=== PATIENT | male | born 1960 | race Caucasian/White ===

== ENCOUNTER 2020-01-28 16:31 | Inpatient (IN) | payer OTHER ==
[~2020-01-28] VITALS: Ht 172.7 cm; Wt 82.7 kg
[2020-01-28 17:06] LABS: BASOPHILS % (AUTO) 0.4 % (0.0-5.0); EOSINOPHILS % (AUTO) 2.1 % (0.0-8.0); HEMATOCRIT 22.6 % (42-54); MEAN CORPUSCULAR HEMOGLOBIN 25.4 pg (27.0-33.0); MEAN CORPUSCULAR HGB CONC 32.7 g/dL (32.0-36.0); MEAN CORPUSCULAR VOLUME 77.7 fL (79-99); MONOCYTES % (AUTO) 5.7 % (3.0-13.0); NEUTROPHILS % (AUTO) 53.5 % (40.0-77.0); PLATELET COUNT (AUTO) 56 K/uL (130-400); RED BLOOD CELL COUNT(AUTO) 2.91 MIL/uL (4.50-6.20); RED CELL DISTRIBUTION WIDTH 20.3 % (11.0-15.5); WHITE BLOOD COUNT (AUTO) 7.2 K/uL (4.8-10.8)
[2020-01-28 17:23] LABS: CREATININE 0.9 mg/dL (0.5-1.5); PLATELET MORPHOLOGY COMMENT MARKED DECREASE; POTASSIUM 3.7 mmol/L (3.5-5.1)
[2020-01-28 17:26] LABS: INR 1.46 (0.85-1.15); PARTIAL THROMBOPLASTIN TIME 35.2 SEC (26.3-35.5); PROTHROMBIN TIME 15.5 SEC (9.6-11.6)
[2020-01-28 17:28] LABS: ALBUMIN 1.7 g/dL (3.5-5.0); TOTAL PROTEIN, SERUM 7.4 g/dL (6.0-8.3)
[2020-01-28 17:34] LABS: B-TYPE NATRIURETIC PEPTIDE 42 pg/mL (0-100)
[2020-01-28] MEDS ORDERED: PHYTONADIONE 10 MG/1 ML AMP ONE (17:42)
[2020-01-28] MEDS ORDERED: THIAMINE HCL 100 MG/ML 2ML VIAL ONE ×2 (17:44→19:28)
[2020-01-28] MEDS ORDERED: SODIUM CHLORIDE 0.9% 100 ML IV ONE (17:45)
[2020-01-28] MEDS ORDERED: SODIUM CHLORIDE 0.9% 50 ML IV ONE (17:45)
[2020-01-28] MEDS ORDERED: LACTULOSE 20 GM/30 ML UDCUP PO PRN (18:30)
[2020-01-28] MEDS ORDERED: HYDRALAZINE HCL 20 MG/ML VIAL IV PRN (18:30)
[2020-01-28] MEDS: THIAMINE HCL 100 MG, FOLIC ACID 1 MG, M.V.I. IV [ADULT] 10 ML in SODIUM CHLORIDE 0.9% 1... IV SCH (18:30)
[2020-01-28] MEDS ORDERED: PHARMACY COMMUNICATION MISC PRN (18:30)
[2020-01-28] MEDS ORDERED: ONDANSETRON HCL 4 MG/2 ML VIAL IV PRN (18:30)
[2020-01-28] MEDS ORDERED: LORAZEPAM 2 MG/ML 1 ML VIAL IVP PRN ×2 (18:30)
[2020-01-28] MEDS ORDERED: CHLORDIAZEPOXIDE HCL 25 MG CAP PO PRN ×2 (18:30)
[2020-01-28] MEDS ORDERED: M.V.I. IV [ADULT] 10 ML VIAL IV ONE (19:29)
[2020-01-28] MEDS ORDERED: SODIUM CHLORIDE 0.9% 1000ML 1,000 ML IV ONE (19:37)
[2020-01-28 19:58] LABS: % IRON SATURATION 6.4 % (30-44)
[2020-01-28 19:59] LABS: HEMOGLOBIN A1C 4.5 % (4.0-6.0)
[2020-01-28 20:00] LABS: CHOLESTEROL 163 mg/dL (<200); HDL CHOLESTEROL 93 mg/dL (29-71); LDL DIRECT 94 mg/dL (0-99); TRIGLYCERIDES 113 mg/dL (30-200)
[2020-01-28 20:24] LABS: APPEARANCE,URINE Clear (CLEAR); BILIRUBIN,URINE Negative (NEGATIVE); COLOR,URINE Yellow (YELLOW); GLUCOSE, URINE (UA) Negative (NEGATIVE); KETONES,URINE Negative (NEGATIVE); LEUKOCYTE ESTERASE ,URINE Negative (NEGATIVE); NITRATE,URINE Negative (NEGATIVE); OCCULT BLOOD,URINE Trace (NEGATIVE); PH,URINE 6.5 (5.0-8.0); PROTEIN,URINE POS 2+ mg/dL (NEGATIVE)
[2020-01-28 20:31] LABS: AMPHET/METH SCREEN,URINE NEGATIVE (NEGATIVE); BARBITURATE SCREEN, URINE NEGATIVE (NEGATIVE); BENZODIAZEPINES SCREEN,URINE NEGATIVE (NEGATIVE); CANNABINOID SCREEN,URINE NEGATIVE (NEGATIVE); COCAINE SCREEN,URINE NEGATIVE (NEGATIVE); OPIATE SCREEN,URINE NEGATIVE (NEGATIVE); PHENCYCLIDINE SCREEN,URINE NEGATIVE (NEGATIVE)
[2020-01-28 20:44] LABS: BACTERIA,URINE Few /HPF (None Seen); RENAL EPITHELIAL CELLS,URINE Few /HPF (None Seen); SQUAMOUS EPITHELIAL CELL,UR Rare /HPF (0-2); TRANSITIONAL EPI CELLS,URINE Few /HPF (None Seen); WBC,URINE 0-1 /HPF (0-1)
[2020-01-28 21:45] VITALS: BP 124/69
--- NOTE | 2020-01-28 22:00 | NUR ---
Admission Assessment Received pt from Ed per stretcher with Banana bag t 100cc/hr & Protonix Drip at 8mg/hr infusing well, pt noted sleepy but able to respond appropriately on questions being asked. Pt stated he came in because he felt weak, pt made aware possibly because of his low blood count. Pt denies having bloody stool when made aware being positive with Occult test. Per pt claimed he does not take any medications, agreed to have a flu & pneumonia vaccination as he has not received such vaccination at all. Pt reminded to remain NPO for now until further orders. Pt mouth noted some blood, per pt claimed that his gums bleeds occasionally, instructed pt to gargle to be able to monitor better. Pt also made aware that he will have a GI consult in AM. Pt currently denies discomfort.
[2020-01-28 23:57] VITALS: BP 129/74
[2020-01-29] MEDS: PANTOPRAZOLE SODIUM 80 MG in SODIUM CHLORIDE 0.9% 100 ML IV SCH ×2 (02:07→23:57)
[2020-01-29 03:50] VITALS: BP 111/70
[2020-01-29 06:13] LABS: BASOPHILS % (AUTO) 0.4 % (0.0-5.0); EOSINOPHILS % (AUTO) 1.7 % (0.0-8.0); MEAN CORPUSCULAR HEMOGLOBIN 26.4 pg (27.0-33.0); MEAN CORPUSCULAR HGB CONC 33.2 g/dL (32.0-36.0); MEAN CORPUSCULAR VOLUME 79.6 fL (79-99); MONOCYTES % (AUTO) 7.6 % (3.0-13.0); NEUTROPHILS % (AUTO) 58.9 % (40.0-77.0); PLATELET COUNT (AUTO) 49 K/uL (130-400); RED BLOOD CELL COUNT(AUTO) 2.35 MIL/uL (4.50-6.20); RED CELL DISTRIBUTION WIDTH 21.1 % (11.0-15.5); WHITE BLOOD COUNT (AUTO) 5.3 K/uL (4.8-10.8)
[2020-01-29 06:43] LABS: HEMATOCRIT 18.7 % (42-54)
[2020-01-29 07:03] LABS: CREATININE 0.8 mg/dL (0.5-1.5); POTASSIUM 3.5 mmol/L (3.5-5.1)
[2020-01-29 08:00] VITALS: BP 129/73
[2020-01-29] MEDS ORDERED: OCTREOTIDE ACETATE 100 MCG/ML AMP IV SCH (08:45)
[2020-01-29] MEDS ORDERED: OCTREOTIDE ACETATE 1,250 MCG in SODIUM CHLORIDE 0.9% 250 ML IV SCH (08:45)
[2020-01-29] MEDS ORDERED: PHARMACY COMMUNICATION MISC SCH (11:00)
[2020-01-29 12:00] VITALS: BP 140/75
[2020-01-29] MEDS ORDERED: FUROSEMIDE 10 MG/ML 2ML VIAL IV SCH (12:45)
[2020-01-29 13:28] LABS: HEMATOCRIT 23.4 % (42-54)
[2020-01-29] MEDS: CHLORHEXIDINE GLUCONATE 473 ML MOUTHWASH MM SCH ×2 (13:34→21:41)
[2020-01-29] MEDS: ZOSYN 3.375GM+NS 50ML 50 ML IV SCH ×2 (14:41→21:40)
[2020-01-29 16:00] VITALS: BP 116/71
[2020-01-29] MEDS ORDERED: SODIUM CHLORIDE 0.9% 250 ML IV ONE (18:34)
[2020-01-29] MEDS: THIAMINE HCL 100 MG, FOLIC ACID 1 MG, M.V.I. IV [ADULT] 10 ML in SODIUM CHLORIDE 0.9% 1... IV SCH (19:05)
[2020-01-29 19:50] VITALS: BP 141/85
--- NOTE | 2020-01-29 19:55 | NUR ---
PM Assessment Received pt with Protonix drip at 8mg/hr, Sandostatin drip at 5cc/hr, Banana bag at 100cc/hr, all infusing well. Platelet transfusion unit # [id number] completed at this time, no reactions noted, to follow ordered 2 units FFP. Routine assessment done, plan of care discuss with pt, reminded to remain NPO. Peridex mouth wash rendered, no active gum bleeding at this time. As per report by Tania HART stated to render ordered Lactulose enema once all ordered blood products completed. Pt was made aware & agreed. Pt currently denies any discomfort.
--- NOTE | 2020-01-29 20:50 | NUR ---
Re: FFP transfusion 1st unit FFP # [id number] initiated at this time as ordered at 350cc/hr, pt reminded s/s of possible transfusion reactions.
--- NOTE | 2020-01-29 21:40 | NUR ---
Re: 1st unit FFP 1st unit FFP completed without any reaction to follow 2nd unit as ordered.
--- NOTE | 2020-01-29 22:05 | NUR ---
Re: 2ndd unit 2nd unit FFP # [id number] initiated at this time as ordered at 320cc/hr.
--- NOTE | 2020-01-29 23:00 | NUR ---
Re: 2nd unit FFP 2nd unit FFP completed at this time with no reactions notes.
[2020-01-30] VITALS (7 sets, daily range): BP systolic 135–150; BP diastolic 64–87
[2020-01-30] MEDS: LACTULOSE 20 GM/30 ML UDCUP PR SCH ×2 (00:29→14:00)
--- NOTE | 2020-01-30 00:30 | NUR ---
Re: Lactulose Enema Ordered Lactulose enema rendered at this time as order post all blood transfusion. Procedure explained to the pt & why need to have it done, verbalizes understanding & well tolerated. No bloody BM noted.
--- NOTE | 2020-01-30 01:40 | NUR ---
Re: Lactic Acid 4.0 Page & called back LE[employer] ADMINISTRATION SUPERVISOR Lisa & made aware that Lactic Acid level at this time 4.0 trending up, current IV fluid is a Banana bag at 100cc/hr, Sandostatin at 5cc/hr, Protonic drip at 10cc/hr, VS stable, no active bleeding, with order to give NS 1000cc bolus x 1.
[2020-01-30] MEDS ORDERED: SODIUM CHLORIDE 0.9% 1000ML 1,000 ML IV ONE (01:58)
[2020-01-30] MEDS ORDERED: SODIUM CHLORIDE 0.9% 250 ML IV ONE (02:00)
[2020-01-30] MEDS ORDERED: SODIUM CHLORIDE 0.9% 1,000 ML IV ONE (03:45)
[2020-01-30] MEDS: ZOSYN 3.375GM+NS 50ML 50 ML IV SCH ×3 (04:20→20:46)
[2020-01-30 05:28] LABS: BASOPHILS % (AUTO) 0.4 % (0.0-5.0); EOSINOPHILS % (AUTO) 0.5 % (0.0-8.0); HEMATOCRIT 24.6 % (42-54); LYMPHOCYTES % (AUTO) 14.1 % (21.0-51.0); MEAN CORPUSCULAR HEMOGLOBIN 27.3 pg (27.0-33.0); MEAN CORPUSCULAR HGB CONC 33.3 g/dL (32.0-36.0); MONOCYTES % (AUTO) 9.2 % (3.0-13.0); NEUTROPHILS % (AUTO) 75.1 % (40.0-77.0); PLATELET COUNT (AUTO) 68 K/uL (130-400); RED CELL DISTRIBUTION WIDTH 19.8 % (11.0-15.5); WHITE BLOOD COUNT (AUTO) 5.5 K/uL (4.8-10.8)
[2020-01-30 05:44] LABS: CREATININE 0.8 mg/dL (0.5-1.5); POTASSIUM 3.3 mmol/L (3.5-5.1)
[2020-01-30] MEDS: CHLORHEXIDINE GLUCONATE 473 ML MOUTHWASH MM SCH ×2 (08:30→20:48)
--- NOTE | 2020-01-30 11:32 | NUR ---
nurse spoke with dr. Rae regarding consult. Dr. Rae stated that patient my have gingervitis and he will see patient 01/31/20.
[2020-01-30] MEDS: PANTOPRAZOLE SODIUM 80 MG in SODIUM CHLORIDE 0.9% 100 ML IV SCH (14:50)
[2020-01-30] MEDS: THIAMINE HCL 100 MG, FOLIC ACID 1 MG, M.V.I. IV [ADULT] 10 ML in SODIUM CHLORIDE 0.9% 1... IV SCH (14:50)
[2020-01-30] MEDS: LACTULOSE 20 GM/30 ML UDCUP PO SCH ×2 (14:50→20:47)
[2020-01-31] VITALS (19 sets, daily range): BP systolic 116–161; BP diastolic 60–85
[2020-01-31] MEDS: PANTOPRAZOLE SODIUM 80 MG in SODIUM CHLORIDE 0.9% 100 ML IV SCH (00:56)
[2020-01-31] MEDS: LACTULOSE 20 GM/30 ML UDCUP PO SCH ×3 (05:30→20:50)
[2020-01-31 05:33] LABS: BASOPHILS % (AUTO) 0.3 % (0.0-5.0); EOSINOPHILS % (AUTO) 1.4 % (0.0-8.0); HEMATOCRIT 24.8 % (42-54); LYMPHOCYTES % (AUTO) 20.9 % (21.0-51.0); MEAN CORPUSCULAR HEMOGLOBIN 27.2 pg (27.0-33.0); MEAN CORPUSCULAR HGB CONC 33.1 g/dL (32.0-36.0); MEAN CORPUSCULAR VOLUME 82.1 fL (79-99); MONOCYTES % (AUTO) 10.4 % (3.0-13.0); NEUTROPHILS % (AUTO) 66.8 % (40.0-77.0); NUCLEATED RED BLOOD CELLS 0.3 % (0.0-0.19); PLATELET COUNT (AUTO) 55 K/uL (130-400); RED BLOOD CELL COUNT(AUTO) 3.02 MIL/uL (4.50-6.20); RED CELL DISTRIBUTION WIDTH 19.9 % (11.0-15.5); WHITE BLOOD COUNT (AUTO) 5.8 K/uL (4.8-10.8)
[2020-01-31] MEDS: ZOSYN 3.375GM+NS 50ML 50 ML IV SCH ×3 (05:46→20:50)
[2020-01-31] MEDS ORDERED: PROPOFOL 10 MG/ML 20ML VIAL IV ONE (08:01)
[2020-01-31] MEDS ORDERED: LIDOCAINE HCL 1% 20 ML VIAL ONE (08:02)
[2020-01-31] MEDS ORDERED: LACTULOSE 20 GM/30 ML UDCUP PO SCH (09:00)
[2020-01-31] MEDS: CHLORHEXIDINE GLUCONATE 473 ML MOUTHWASH MM SCH ×2 (09:32→20:50)
--- NOTE | 2020-01-31 11:50 | NUR ---
INITIAL SW met with patient. He states that he lives with spouse, Jackelin Sunshine, [phone]. No home services or DME. Patient states that he is able to complete ADL's independently but does not drive. No PCP. Pharmacy is [facility] located on [address] [place] [address] in [place]. DCP is home. Patient has no insurance or benefits. He is a [place] citizen and has worked in the . Patient was provided with community resources for post hospitalization follow up. Patient was also provided with Good RX card for prescriptions and educated on [facility] $4 medication program and [facility] $5 medication program. Patient is being assisted by [employer] for financial matters. Addendum: 01/31/20 at 1154 by MED HARKINS SS Amended: Links added.
--- NOTE | 2020-01-31 11:54 | NUR ---
ETOH abuse SW spoke to patient regarding history on drinking alcohol. He admits he started drinking when he was 16 years of age and states he would drink 3-4 drinks daily. Patient stated that he had already quick drinking. SW informed patient that he was still positive for alcohol upon admission but patient insisted that he had stopped. SW educated patient on the negative affects of alcohol on mental and physical health and provided patient with list of local Alcoholic Anonymous meetings. SW also provided patient with community resources that he could contact for inpatient and outpatient substance abuse counseling. Patient was receptive to information provided.
[2020-01-31] MEDS: PANTOPRAZOLE SODIUM 40 MG TABLET.DR PO SCH (20:50)
--- NOTE | 2020-02-01 02:25 | NUR ---
Patient increasingly confused/restless/agitated, using foul language. States wants his clothes to go home, says there are shipping support outside his room. Patient reoriented prn, but starts to become aggressive towards staff. Sitting on edge of bed, frequently attempting to get out of bed unassisted and refuses to get back in bed. After much encouragement, patient finally got back in bed, but pulled out x2 IV's, threw them across his room and also pulled off ID band. Called [facility] order given for Geodon 20mg IM x1.
[2020-02-01 02:50] LABS: BASOPHILS % (AUTO) 0.4 % (0.0-5.0); EOSINOPHILS % (AUTO) 2.1 % (0.0-8.0); HEMATOCRIT 26.4 % (42-54); LYMPHOCYTES % (AUTO) 17.4 % (21.0-51.0); MEAN CORPUSCULAR HEMOGLOBIN 27.7 pg (27.0-33.0); MEAN CORPUSCULAR HGB CONC 33.7 g/dL (32.0-36.0); MEAN CORPUSCULAR VOLUME 82.2 fL (79-99); MONOCYTES % (AUTO) 9.1 % (3.0-13.0); NEUTROPHILS % (AUTO) 70.7 % (40.0-77.0); PLATELET COUNT (AUTO) 73 K/uL (130-400); RED BLOOD CELL COUNT(AUTO) 3.21 MIL/uL (4.50-6.20); RED CELL DISTRIBUTION WIDTH 19.5 % (11.0-15.5); WHITE BLOOD COUNT (AUTO) 7.2 K/uL (4.8-10.8)
[2020-02-01 03:00] VITALS: BP 130/88
[2020-02-01] MEDS ORDERED: ZIPRASIDONE MESYLATE 20 MG/VIAL IM ONE (03:13)
[2020-02-01 03:16] LABS: ALBUMIN 1.7 g/dL (3.5-5.0); BILIRUBIN,TOTAL 4.8 mg/dL (0.2-1.0); TOTAL PROTEIN, SERUM 7.1 g/dL (6.0-8.3)
[2020-02-01 03:23] LABS: POTASSIUM 2.7 mmol/L (3.5-5.1)
[2020-02-01 03:29] LABS: MAGNESIUM 1.1 mg/dL (1.80-2.40)
[2020-02-01] MEDS: ZIPRASIDONE MESYLATE 20 MG/VIAL IM SCH ×2 (03:44→04:40)
[2020-02-01] MEDS ORDERED: POTASSIUM CHLORIDE 20MEQ/100ML 100 ML IV PRN (04:30)
[2020-02-01] MEDS ORDERED: MAGNESIUM 2GM PREMIX 50ML 50 ML IV PRN (04:30)
[2020-02-01] MEDS ORDERED: POTASSIUM CHLORIDE 20 MEQ ERTAB PO PRN (04:30)
[2020-02-01] MEDS ORDERED: LIDOCAINE HCL-MPF 1% 2ML VIAL IV PRN (04:30)
[2020-02-01] MEDS ORDERED: MAGNESIUM 2GM PREMIX 50ML 50 ML IV ONE (04:38)
--- NOTE | 2020-02-01 04:55 | NUR ---
Patient appears drowsy, but continues confused/restless/agitated, requires closer monitoring. He was moved to room 315 to provide 2:1 sitter monitoring. Will continue to monitor.
--- NOTE | 2020-02-01 05:13 | NUR ---
Pt. agitated and combative with the staff. Called Floresita Gonzalez NP and ordered to give Ativan 1mg IV now.
[2020-02-01] MEDS ORDERED: LORAZEPAM 2 MG/ML 1 ML VIAL IM ONE (05:15)
[2020-02-01] MEDS: LACTULOSE 20 GM/30 ML UDCUP PO SCH ×3 (05:16→19:50)
[2020-02-01] MEDS: ZOSYN 3.375GM+NS 50ML 50 ML IV SCH ×3 (05:18→19:50)
[2020-02-01] MEDS: POTASSIUM CHLORIDE 10% ELIXIR 20 MEQ/15 ML UDCUP PO PRN ×4 (05:46→12:40)
[2020-02-01 07:10] LABS: HEPATITIS A ANTIBODY IGM Negative (Negative); HEPATITIS B CORE IGM Negative (Negative); HEPATITIS Bs ANTIGEN SCREEN P Negative (Negative)
[2020-02-01 07:31] VITALS: BP 150/92
[2020-02-01] MEDS: PANTOPRAZOLE SODIUM 40 MG TABLET.DR PO SCH ×2 (08:48→19:49)
[2020-02-01] MEDS: CHLORHEXIDINE GLUCONATE 473 ML MOUTHWASH MM SCH ×2 (08:52→19:51)
[2020-02-01 10:51] VITALS: BP 132/69
[2020-02-01] MEDS ORDERED: LACTULOSE 20 GM/30 ML UDCUP PO SCH (12:30)
[2020-02-01] MEDS ORDERED: LORAZEPAM 2 MG/ML 1 ML VIAL IVP PRN (14:00)
[2020-02-01] MEDS ORDERED: CHLORDIAZEPOXIDE HCL 25 MG CAP PO PRN (14:00)
[2020-02-01 15:33] VITALS: BP 138/74
[2020-02-01] MEDS ORDERED: SODIUM CHLORIDE 0.9% 500ML 500 ML IV ONE (16:27)
[2020-02-01 20:00] VITALS: BP_SYST 141; BP_SYST 92; BP_DIAS 55; BP_DIAS 83
[2020-02-01 22:50] VITALS: BP 141/83
[2020-02-02] VITALS (7 sets, daily range): BP systolic 100–137; BP diastolic 48–88
[2020-02-02] MEDS: LACTULOSE 20 GM/30 ML UDCUP PO SCH ×4 (01:43→21:06)
[2020-02-02] MEDS: ZOSYN 3.375GM+NS 50ML 50 ML IV SCH ×3 (05:13→21:05)
[2020-02-02 05:30] LABS: BASOPHILS % (AUTO) 0.4 % (0.0-5.0); EOSINOPHILS % (AUTO) 2.7 % (0.0-8.0); HEMATOCRIT 28.5 % (42-54); LYMPHOCYTES % (AUTO) 11.9 % (21.0-51.0); MEAN CORPUSCULAR HEMOGLOBIN 26.5 pg (27.0-33.0); MEAN CORPUSCULAR HGB CONC 32.6 g/dL (32.0-36.0); MEAN CORPUSCULAR VOLUME 81.2 fL (79-99); MONOCYTES % (AUTO) 9.5 % (3.0-13.0); NEUTROPHILS % (AUTO) 75.2 % (40.0-77.0); PLATELET COUNT (AUTO) 63 K/uL (130-400); RED BLOOD CELL COUNT(AUTO) 3.51 MIL/uL (4.50-6.20); RED CELL DISTRIBUTION WIDTH 20.3 % (11.0-15.5); WHITE BLOOD COUNT (AUTO) 7.5 K/uL (4.8-10.8)
[2020-02-02 06:06] LABS: ALBUMIN 1.5 g/dL (3.5-5.0); BILIRUBIN,TOTAL 6.3 mg/dL (0.2-1.0); CREATININE 0.9 mg/dL (0.5-1.5); MAGNESIUM 1.4 mg/dL (1.80-2.40); POTASSIUM 3.1 mmol/L (3.5-5.1); TOTAL PROTEIN, SERUM 6.6 g/dL (6.0-8.3)
[2020-02-02] MEDS: POTASSIUM CHLORIDE 20 MEQ ERTAB PO SCH ×2 (07:00→12:40)
[2020-02-02] MEDS: PANTOPRAZOLE SODIUM 40 MG TABLET.DR PO SCH ×2 (09:20→21:05)
[2020-02-02] MEDS: CHLORHEXIDINE GLUCONATE 473 ML MOUTHWASH MM SCH ×2 (09:25→21:09)
--- NOTE | 2020-02-02 15:55 | NUR ---
RD SCREEN - LOS X 5 Pt admitted for Lower Extremity swelling, Hx of HTN. Pt positive occult stool, GI Bleed, anemia, Cirrhosis. Recommend to continue GI Soft Remington Diet order with Thiamine & 500mg oral Vitamin C daily. RD to continue to monitor nutritional labs, PO status, and nutrition status. Please notify RD as additional nutrition concerns arise. Thank you. Addendum: 02/02/20 at [address] RD Amended: Links added.
[2020-02-03] MEDS: LACTULOSE 20 GM/30 ML UDCUP PO SCH ×4 (02:43→19:42)
[2020-02-03 03:00] VITALS: BP 124/58
[2020-02-03 04:45] LABS: BASOPHILS % (AUTO) 0.6 % (0.0-5.0); HEMATOCRIT 25.5 % (42-54); LYMPHOCYTES % (AUTO) 17.7 % (21.0-51.0); MEAN CORPUSCULAR HEMOGLOBIN 27.5 pg (27.0-33.0); MEAN CORPUSCULAR HGB CONC 33.7 g/dL (32.0-36.0); MEAN CORPUSCULAR VOLUME 81.5 fL (79-99); MONOCYTES % (AUTO) 11.5 % (3.0-13.0); NEUTROPHILS % (AUTO) 68.1 % (40.0-77.0); PLATELET COUNT (AUTO) 67 K/uL (130-400); RED BLOOD CELL COUNT(AUTO) 3.13 MIL/uL (4.50-6.20); RED CELL DISTRIBUTION WIDTH 20.6 % (11.0-15.5); WHITE BLOOD COUNT (AUTO) 6.8 K/uL (4.8-10.8)
[2020-02-03] MEDS: ZOSYN 3.375GM+NS 50ML 50 ML IV SCH ×3 (05:44→19:41)
[2020-02-03 05:54] LABS: ALBUMIN 1.5 g/dL (3.5-5.0); BILIRUBIN,TOTAL 6.6 mg/dL (0.2-1.0); CREATININE 1.2 mg/dL (0.5-1.5); POTASSIUM 3.1 mmol/L (3.5-5.1); TOTAL PROTEIN, SERUM 6.1 g/dL (6.0-8.3)
[2020-02-03 07:10] VITALS: BP 119/60
[2020-02-03] MEDS: PANTOPRAZOLE SODIUM 40 MG TABLET.DR PO SCH ×2 (09:28→19:41)
[2020-02-03] MEDS: CHLORHEXIDINE GLUCONATE 473 ML MOUTHWASH MM SCH ×2 (09:29→19:41)
[2020-02-03 10:50] VITALS: BP 123/57
[2020-02-03] MEDS: POTASSIUM CHLORIDE 20 MEQ ERTAB PO SCH ×3 (12:00→19:41)
[2020-02-03] MEDS: POTASSIUM CHLORIDE 10% ELIXIR 20 MEQ/15 ML UDCUP PO PRN ×2 (12:42→15:14)
[2020-02-03] MEDS ORDERED: MAGNESIUM 2GM PREMIX 50ML 50 ML IV SCH (14:00)
[2020-02-03] MEDS ORDERED: COMPOUND IV MISC 1 EACH IVSOLN MISC PRN (14:00)
[2020-02-03] MEDS ORDERED: POTASSIUM CHLORIDE 20MEQ/100ML 100 ML IV PRN (14:00)
[2020-02-03] MEDS ORDERED: LIDOCAINE HCL-MPF 1% 2ML VIAL IV PRN (14:00)
[2020-02-03] MEDS: IRON SUCROSE COMPLEX 100 MG in SODIUM CHLORIDE 0.9% 50 ML IV SCH (15:40)
[2020-02-03 15:57] VITALS: BP 119/62
[2020-02-03] MEDS ORDERED: POTASSIUM CHLORIDE 20 MEQ ERTAB PO SCH (17:00)
[2020-02-03 20:00] VITALS: BP 130/68
[2020-02-03 23:52] VITALS: BP 136/69
[2020-02-04] MEDS: LACTULOSE 20 GM/30 ML UDCUP PO SCH ×2 (01:25→10:39)
[2020-02-04 03:43] VITALS: BP 110/63
[2020-02-04 04:28] LABS: BASOPHILS % (AUTO) 0.2 % (0.0-5.0); EOSINOPHILS % (AUTO) 1.7 % (0.0-8.0); HEMATOCRIT 23.4 % (42-54); MEAN CORPUSCULAR HEMOGLOBIN 27.1 pg (27.0-33.0); MEAN CORPUSCULAR HGB CONC 33.8 g/dL (32.0-36.0); MEAN CORPUSCULAR VOLUME 80.4 fL (79-99); MONOCYTES % (AUTO) 12.7 % (3.0-13.0); PLATELET COUNT (AUTO) 66 K/uL (130-400); RED BLOOD CELL COUNT(AUTO) 2.91 MIL/uL (4.50-6.20); RED CELL DISTRIBUTION WIDTH 21.3 % (11.0-15.5); WHITE BLOOD COUNT (AUTO) 8.1 K/uL (4.8-10.8)
[2020-02-04] MEDS: ZOSYN 3.375GM+NS 50ML 50 ML IV SCH (04:31)
[2020-02-04 04:48] LABS: ALBUMIN 1.5 g/dL (3.5-5.0); BILIRUBIN,TOTAL 6.6 mg/dL (0.2-1.0); CREATININE 1.1 mg/dL (0.5-1.5); MAGNESIUM 2.3 mg/dL (1.80-2.40); POTASSIUM 3.8 mmol/L (3.5-5.1); TOTAL PROTEIN, SERUM 5.8 g/dL (6.0-8.3)
[2020-02-04] MEDS: POTASSIUM CHLORIDE 20 MEQ ERTAB PO SCH ×2 (07:00→10:29)
[2020-02-04 08:00] VITALS: BP 120/64
[2020-02-04] MEDS ORDERED: FERR325T22 PO (08:58)
[2020-02-04] MEDS ORDERED: PANT40TA PO (08:58)
[2020-02-04] MEDS ORDERED: FOLI0.8T PO (08:58)
[2020-02-04] MEDS ORDERED: MECO10005 PO (08:58)
[2020-02-04] MEDS ORDERED: LACT10SO9 PO (08:59)
[2020-02-04] MEDS: PANTOPRAZOLE SODIUM 40 MG TABLET.DR PO SCH (10:28)
[2020-02-04] MEDS: IRON SUCROSE COMPLEX 100 MG in SODIUM CHLORIDE 0.9% 50 ML IV SCH (10:37)
[2020-02-04] MEDS: CHLORHEXIDINE GLUCONATE 473 ML MOUTHWASH MM SCH (10:39)
[2020-02-04 11:25] VITALS: BP 127/66
--- NOTE | 2020-02-04 13:00 | NUR ---
NOTE SICHARGE INSTRUCTIONS GIVEN TO PATIENT AT THIS TIME. REFER TO DC SUMMARY FOR DETAILS.
== END 2020-02-04 13:14 | disposition home or self-care (01) | DRG 433 ==
LOC: EDH 16:31 → OBSVTOIN 16:32 → EDHIP 16:32 → 3DH 20:14 → 3CH 02-01 04:30
PROVIDERS: ADMIT Internal Medicine; ATTEND Internal Medicine
PROC: 30233K1 Transfusion of Nonautologous Frozen Plasma into Peripheral Vein, Percutaneous Approach (ICD-10-PCS; 2020-01-28)
PROC: 30233N1 Transfusion of Nonautologous Red Blood Cells into Peripheral Vein, Percutaneous Approach (ICD-10-PCS; 2020-01-28)
PROC: 30233R1 Transfusion of Nonautologous Platelets into Peripheral Vein, Percutaneous Approach (ICD-10-PCS; 2020-01-28)
PROC: 0DJ08ZZ Inspection of Upper Intestinal Tract, Via Natural or Artificial Opening Endoscopic (ICD-10-PCS; principal; 2020-01-31)
DX: K70.30 Alcoholic cirrhosis of liver without ascites (principal); E44.0 Moderate protein-calorie malnutrition; D62 Acute posthemorrhagic anemia; K92.2 Gastrointestinal hemorrhage, unspecified; K76.6 Portal hypertension; E87.2 Acidosis; F10.239 Alcohol dependence with withdrawal, unspecified; L03.119 Cellulitis of unspecified part of limb; K70.10 Alcoholic hepatitis without ascites; K72.90 Hepatic failure, unspecified without coma; M79.89 Other specified soft tissue disorders; D69.59 Other secondary thrombocytopenia; I10 Essential (primary) hypertension; K06.8 Other specified disorders of gingiva and edentulous alveolar ridge; R16.1 Splenomegaly, not elsewhere classified; E11.9 Type 2 diabetes mellitus without complications; F10.229 Alcohol dependence with intoxication, unspecified; Y90.8 Blood alcohol level of 240 mg/100 ml or more; K44.9 Diaphragmatic hernia without obstruction or gangrene; K22.2 Esophageal obstruction; K31.89 Other diseases of stomach and duodenum; R16.0 Hepatomegaly, not elsewhere classified; R19.5 Other fecal abnormalities; Z68.27 Body mass index [BMI] 27.0-27.9, adult
CPT/HCPCS: 36415; 36430; 43235; 71045; 76700; 80048; 80053; 80061; 80074; 80305; 81001; 82105; 82140; 82150; 82270; 82550; 83036; 83540; 83550; 83605; 83735; 83880; 84132; 84484; 85014; 85018; 85025; 85610; 85730; 86850; 86900; 86901; 86922; 86927; 87040; 93005; 93970; A4606; C9113; G0378; G0480; J1756; J1940; J2060; J2354; J2543; J2704; J3411; J3430; J3475; J3480; J3486; J3490; J7030; J7040; P9016; P9017; P9034

== ENCOUNTER 2020-02-25 01:41 | Inpatient (IN) | payer SELFPAY ==
[~2020-02-25] VITALS: Ht 182.9 cm; Wt 94.4 kg
[~2020-02-25 01:41] MED LIST: FERR325T22 PO; FOLI0.8T PO; LACT10SO9 PO; MECO10005 PO; PANT40TA PO
[2020-02-25 02:22] LABS: APPEARANCE,URINE Turbid (CLEAR); BILIRUBIN,URINE Large (NEGATIVE); COLOR,URINE Dark Yellow (YELLOW); GLUCOSE, URINE (UA) Negative (NEGATIVE); KETONES,URINE Negative (NEGATIVE); LEUKOCYTE ESTERASE ,URINE Moderate (NEGATIVE); NITRATE,URINE Positive (NEGATIVE); OCCULT BLOOD,URINE Moderate (NEGATIVE); PROTEIN,URINE POS 1+ mg/dL (NEGATIVE)
[2020-02-25 02:30] LABS: BASOPHILS % (AUTO) 0.2 % (0.0-5.0); EOSINOPHILS % (AUTO) 0.6 % (0.0-8.0); HEMATOCRIT 22.6 % (42-54); LYMPHOCYTES % (AUTO) 6.3 % (21.0-51.0); MEAN CORPUSCULAR HEMOGLOBIN 30.9 pg (27.0-33.0); MEAN CORPUSCULAR HGB CONC 35.8 g/dL (32.0-36.0); MEAN CORPUSCULAR VOLUME 86.3 fL (79-99); MONOCYTES % (AUTO) 7.6 % (3.0-13.0); NEUTROPHILS % (AUTO) 84.9 % (40.0-77.0); PLATELET COUNT (AUTO) 79 K/uL (130-400); RED BLOOD CELL COUNT(AUTO) 2.62 MIL/uL (4.50-6.20); RED CELL DISTRIBUTION WIDTH 26.5 % (11.0-15.5); WHITE BLOOD COUNT (AUTO) 16.1 K/uL (4.8-10.8)
[2020-02-25 02:37] LABS: BACTERIA,URINE Few /HPF (None Seen); SQUAMOUS EPITHELIAL CELL,UR Few /HPF (0-2)
[2020-02-25 02:40] LABS: CREATININE 1.2 mg/dL (0.5-1.5); POTASSIUM 3.4 mmol/L (3.5-5.1)
[2020-02-25 02:45] LABS: ALBUMIN 1.1 g/dL (3.5-5.0); BILIRUBIN,TOTAL 10.6 mg/dL (0.2-1.0); TOTAL PROTEIN, SERUM 6.2 g/dL (6.0-8.3)
[2020-02-25 02:51] LABS: INR 2.35 (0.85-1.15); PARTIAL THROMBOPLASTIN TIME 48.2 SEC (26.3-35.5); PROTHROMBIN TIME 24.6 SEC (9.6-11.6)
[2020-02-25] MEDS ORDERED: CEFTRIAXONE SODIUM 1 GM ONE (02:58)
[2020-02-25] MEDS ORDERED: MORPHINE SULFATE 4 MG/1ML SYG ONE ×2 (03:00→04:46)
[2020-02-25] MEDS ORDERED: ONDANSETRON HCL 4 MG/2 ML VIAL ONE (03:00)
[2020-02-25] MEDS ORDERED: SODIUM CHLORIDE 0.9% 1000ML 1,000 ML IV SCH (05:52)
[2020-02-25] MEDS ORDERED: HYDRALAZINE HCL 20 MG/ML VIAL IV PRN (06:00)
[2020-02-25] MEDS ORDERED: LACTULOSE 20 GM/30 ML UDCUP PO PRN (06:00)
[2020-02-25] MEDS ORDERED: ONDANSETRON HCL 4 MG/2 ML VIAL IV PRN (06:00)
[2020-02-25] MEDS ORDERED: POTASSIUM CHLORIDE 10MEQ/100ML 100 ML IV PRN (06:15)
[2020-02-25] MEDS ORDERED: LIDOCAINE HCL-MPF 1% 2ML VIAL IV PRN (06:15)
[2020-02-25] MEDS ORDERED: MORPHINE SULFATE 2 MG/ML 1ML SYG IVP PRN (06:15)
--- NOTE | 2020-02-25 07:27 | NUR ---
PT ARRIVED TO UNIT. AWAKE ALERT AND ORIENTED. STATES SOME DISCOMFORT TO ABD. VITAL SIGNS STABLE. PT IN BED SEMI-FOWLERS POSITION. SIDE RAILS X2. BED LOCKED AND LOW. CALL LIGHT IN REACH.
[2020-02-25 07:30] VITALS: BP 104/56
[2020-02-25] MEDS ORDERED: FAMOTIDINE/PF 20 MG/2 ML VIAL IV SCH (09:00)
--- NOTE | 2020-02-25 09:50 | NUR ---
WAS NOTIFIED BY JESUS CHAVEZ THAT PT WAS IN DISTRESS. FOUND PT AT BED SIDE VOMITING LARGE AMOUNT OF BLOOD. CHARGE NURSE HAILEY SOTO WAS NOTIFIED AND RAPID RESPONSE ACTIVATED AT 0952. PT CODED AT 0954, CPR INITIATED. HEALTHCARE STAFF AND RESPONSE TEAM ASSISTED WITH CODE. PT WAS ALSO NOTIFIED OF PT CHANGE OF STATUS AT 1007. REFER TO CODE SHEET FOR FURTHER DETAIL. CHARGE NURSE HAILEY SOTO NOTIFIED BAL.
[2020-02-25] MEDS ORDERED: AMIODARONE HCL 50 MG/ML 3 ML VIAL IV ONE (10:20)
[2020-02-25] MEDS ORDERED: EPINEPHRINE 0.1 MG/ML 10 ML SYG IVP ONE (10:20)
[2020-02-25] MEDS ORDERED: SODIUM BICARB 8.4% 50ML SYRINGE IVP ONE (10:20)
[2020-02-25] MEDS ORDERED: DEXTROSE 50%-WATER 50 ML DISP.SYRIN IV ONE (10:20)
[2020-02-26] MEDS ORDERED: CEFTRIAXONE SODIUM 1 GM IV SCH (02:00)
== END 2020-02-25 10:21 | disposition expired | DRG 689 ==
LOC: EDH 01:41 → EDHIP 01:42 → 3AH 07:06
PROVIDERS: ADMIT Internal Medicine; ATTEND Internal Medicine
PROC: 5A12012 Performance of Cardiac Output, Single, Manual (ICD-10-PCS; principal; 2020-02-25)
DX: N39.0 Urinary tract infection, site not specified (principal); K85.90 Acute pancreatitis without necrosis or infection, unspecified; E72.20 Disorder of urea cycle metabolism, unspecified; D68.4 Acquired coagulation factor deficiency; E87.6 Hypokalemia; D69.6 Thrombocytopenia, unspecified; K70.30 Alcoholic cirrhosis of liver without ascites; I10 Essential (primary) hypertension; Z91.14 Patient's other noncompliance with medication regimen
CPT/HCPCS: 31500; 36415; 74176; 80053; 81001; 82140; 82150; 82948; 83690; 84484; 85025; 85610; 85730; 87040; 87088; 92950; 93005; G0378; J0171; J0282; J0696; J2270; J2405; J3490; J7070